=== PATIENT | female | born 1975 | race Caucasian/White ===

== ENCOUNTER 2019-07-01 04:38 | Inpatient (IN) | payer OTHER ==
[~2019-07-01] VITALS: Ht 154.9 cm; Wt 50.8 kg
[2019-07-01] MEDS ORDERED: SODIUM CHLORIDE 0.9% 1,000 ML IV ONE (05:08)
[2019-07-01] MEDS ORDERED: ONDANSETRON HCL 4MG/2ML INJ IV STA (05:08)
[2019-07-01] MEDS ORDERED: LORAZEPAM 2MG/ML CPJ IV ONE (05:15)
[2019-07-01] MEDS ORDERED: LEVETIRACETAM 500MG PREMIX 100 ML IV ONE (05:15)
[2019-07-01 05:41] LABS: BG BASE EXCESS -1.2 mmol/L (-2.0-2.0); BG CARBOXYHEMOGLOBIN 1.8 % (0.5-1.5); BG DEOXYHEMOGLOBIN 0.6 % (0.0-5.0); BG FRACTION INSPIRED OXYGEN 100; BG HCO3 ACT 25.4 mmol/L (22.0-26.0); BG METHEMOGLOBIN 0.1 % (0.0-1.5); BG OXYGEN SATURATION 99.4 % (92.0-98.5); BG OXYHEMOGLOBIN 97.5 % (94.0-97.0); BG PCO2 51.1 mmHg (35.0-45.0); BG PH 7.315 (7.350-7.450); BG SAMPLE SITE RIGHT RADIAL; BG TOTAL HEMOGLOBIN 11.5 g/dL (12.0-18.0); BG VENT MODE MASK - NRB
[2019-07-01 05:59] LABS: BASOPHILS % 0.7 % (0.0-2.0); EOSINOPHILS % 2.1 % (0.0-5.0); HEMATOCRIT. 41.5 % (36.0-48.0); LYMPHOCYTES % 39.3 % (20.0-50.0); MEAN CORPUSCULAR HEMOGLOBIN 27.6 pg (28.0-32.0); MEAN CORPUSCULAR VOLUME 87.9 fL (81.0-99.0); MEAN PLATELET VOLUME 8.1 fl (7.4-10.4); MONOCYTES % 6.4 % (2.0-8.0); NEUTROPHILS % 51.5 % (40.0-76.0); PLATELET 508 x1000/uL (130-400); RED BLOOD CELL COUNT 4.73 mill/uL (4.2-5.4); RED CELL DISTRIBUTION WIDTH 16.6 % (11.6-14.6)
[2019-07-01 06:08] LABS: CHLORIDE 103 mEq/L (98-107)
[2019-07-01 06:13] LABS: ETHANOL BLOOD < 10 mg/dL
[2019-07-01 07:14] LABS: CLARITY URINE CLEAR (CLEAR); COLOR URINE YELLOW (YELLOW); KETONES URINE NEGATIVE (NEGATIVE); LEUKOCYTE ESTERASE URINE NEGATIVE (NEGATIVE); NITRITE URINE NEGATIVE (NEGATIVE); OCCULT BLOOD URINE NEGATIVE (NEGATIVE); PROTEIN URINE NEGATIVE (NEGATIVE); SPECIFIC GRAVITY URINE 1.022 (1.005-1.030); UROBILINOGEN URINE 0.2 E.U./dL (0.2-1.0)
[2019-07-01 08:12] LABS: *BARBITURATES SCREEN URINE NEGATIVE (NEGATIVE); *BENZODIAZEPINES SCREEN URINE NEGATIVE (NEGATIVE); *COCAINE SCREEN URINE NEGATIVE (NEGATIVE); CANNABINOID URINE SCREEN NEGATIVE (NEGATIVE); METHADONE URINE SCREEN NEGATIVE (NEGATIVE); OPIATES URINE SCREEN NEGATIVE (NEGATIVE); PHENCYCLIDINE URINE SCREEN NEGATIVE (NEGATIVE)
[2019-07-01 08:27] LABS: *AMPHETAMINES SCREEN URINE PRESUMTIVE POSITIVE (NEGATIVE)
[2019-07-01] MEDS ORDERED: SODIUM CHLORIDE 0.9% 1,000 ML IV SCH (09:36)
[2019-07-01] MEDS ORDERED: ONDANSETRON HCL 4MG/2ML INJ IV PRN (09:45)
[2019-07-01] MEDS ORDERED: ACETAMINOPHEN 325MG TABLET PO PRN (09:45)
[2019-07-01] MEDS ORDERED: CLONIDINE 0.1MG TABLET PO PRN (09:45)
[2019-07-01] MEDS ORDERED: IPRATROPIUM/ALBUTEROL 0.5-3(2.5)MG/3ML NEB HHN PRN (09:45)
[2019-07-01] MEDS ORDERED: LORAZEPAM 2MG/ML CPJ IV PRN (09:45)
[2019-07-01] MEDS ORDERED: DIPHENHYDRAMINE 50MG/ML VIAL IV PRN (09:45)
[2019-07-01 10:27] LABS: PHOSPHORUS 4.8 mg/dL (2.5-4.9)
[2019-07-01] MEDS ORDERED: ENOXAPARIN 40MG/0.4ML SYR SUBCUT SCH (11:00)
[2019-07-01 11:12] VITALS: BP 102/71
[2019-07-01 12:48] VITALS: BP 104/71
[2019-07-01] MEDS ORDERED: DEXTROSE 50% WATER 50ML SYRINGE IV PRN (13:30)
[2019-07-01 13:50] VITALS: BP 119/73
[2019-07-01 14:50] VITALS: BP 116/78
[2019-07-01] MEDS ORDERED: BLOOD SUGAR DIAGNOSTIC STRIP TEST SCH (17:30)
[2019-07-01] MEDS ORDERED: INSULIN LISPRO 100 UNITS/ML SUBCUT SCH (18:00)
[2019-07-01] MEDS ORDERED: LEVETIRACETAM 500MG PREMIX 100 ML IV SCH (21:00)
== END 2019-07-01 17:16 | disposition left against medical advice (07) | DRG 53 ==
LOC: ER 05:10 → 5EST 05:53 → ENRESERV 08:43 → CANRESERV 08:43 → ENRESERV 09:43
PROVIDERS: ADMIT Internal Medicine; ATTEND Internal Medicine
DX: G40.901 Epilepsy, unspecified, not intractable, with status epilepticus (principal); E87.6 Hypokalemia; R73.9 Hyperglycemia, unspecified; Z53.29 Procedure and treatment not carried out because of patient's decision for other reasons; Z68.21 Body mass index [BMI] 21.0-21.9, adult
CPT/HCPCS: 36415; 36600; 71045; 80053; 80305; 80307; 80320; 80329; 81003; 82375; 82805; 82962; 83605; 83735; 84100; 85025; 93005; 96365; 99291; J1953; J2060; J2405; J7030; G0480

== ENCOUNTER 2019-07-16 05:32 | Inpatient (IN) | payer OTHER ==
[~2019-07-16] VITALS: Ht 160 cm; Wt 54.4 kg
[2019-07-16] MEDS ORDERED: LORAZEPAM 2MG/ML CPJ IV ONE (06:15)
[2019-07-16] MEDS ORDERED: LEVETIRACETAM 1000MG/100ML 100 ML IV ONE (06:30)
[2019-07-16] MEDS ORDERED: SODIUM CHLORIDE 0.9% 1,000 ML IV ONE (06:30)
[2019-07-16 06:43] LABS: CHLORIDE 106 mEq/L (98-107)
[2019-07-16 06:47] LABS: BASOPHILS % 0.8 % (0.0-2.0); EOSINOPHILS % 1.6 % (0.0-5.0); ETHANOL BLOOD < 10 mg/dL; HEMATOCRIT. 39.2 % (36.0-48.0); HEMOGLOBIN. 12.7 g/dL (12.0-16.0); LYMPHOCYTES % 22.7 % (20.0-50.0); MEAN CORPUSCULAR HEMOGLOBIN 27.2 pg (28.0-32.0); MEAN CORPUSCULAR VOLUME 84.2 fL (81.0-99.0); MEAN PLATELET VOLUME 7.9 fl (7.4-10.4); MONOCYTES % 8.3 % (2.0-8.0); NEUTROPHILS % 66.6 % (40.0-76.0); PLATELET 485 x1000/uL (130-400); RED BLOOD CELL COUNT 4.65 mill/uL (4.2-5.4)
[2019-07-16 07:07] LABS: HCG SCREEN NEGATIVE
[2019-07-16 07:41] LABS: CLARITY URINE CLEAR (CLEAR); COLOR URINE YELLOW (YELLOW); KETONES URINE NEGATIVE (NEGATIVE); LEUKOCYTE ESTERASE URINE NEGATIVE (NEGATIVE); NITRITE URINE NEGATIVE (NEGATIVE); OCCULT BLOOD URINE NEGATIVE (NEGATIVE); PH URINE 6.5 (4.5-8.0); PROTEIN URINE NEGATIVE (NEGATIVE); SPECIFIC GRAVITY URINE 1.032 (1.005-1.030); UROBILINOGEN URINE 0.2 E.U./dL (0.2-1.0)
[2019-07-16 09:20] LABS: *BARBITURATES SCREEN URINE NEGATIVE (NEGATIVE); *BENZODIAZEPINES SCREEN URINE NEGATIVE (NEGATIVE); *COCAINE SCREEN URINE NEGATIVE (NEGATIVE)
[2019-07-16 09:21] LABS: *AMPHETAMINES SCREEN URINE PRESUMTIVE POSITIVE (NEGATIVE); CANNABINOID URINE SCREEN NEGATIVE (NEGATIVE); METHADONE URINE SCREEN NEGATIVE (NEGATIVE); OPIATES URINE SCREEN NEGATIVE (NEGATIVE); PHENCYCLIDINE URINE SCREEN NEGATIVE (NEGATIVE)
[2019-07-16] MEDS ORDERED: DIPHENHYDRAMINE 50MG/ML VIAL IV PRN (09:30)
[2019-07-16] MEDS ORDERED: LORAZEPAM 2MG/ML CPJ IV PRN (09:30)
[2019-07-16] MEDS ORDERED: CLONIDINE 0.1MG TABLET PO PRN (09:30)
[2019-07-16] MEDS ORDERED: NA PHOS,M-B/NA PHOS,DI-BA ENEMA 118ML PR PRN (09:30)
[2019-07-16] MEDS ORDERED: HYDROCODONE/ACETAMINOPHEN 5/325MG TABLET PO PRN (09:30)
[2019-07-16] MEDS ORDERED: MAGNESIUM/ALUMINUM HYDROXIDE/SIMETHICONE 30ML UDC PO PRN (09:30)
[2019-07-16] MEDS ORDERED: IPRATROPIUM/ALBUTEROL 0.5-3(2.5)MG/3ML NEB NEB PRN (09:30)
[2019-07-16] MEDS ORDERED: DOCUSATE SODIUM 100MG CAPSULE PO PRN (09:30)
[2019-07-16] MEDS ORDERED: GUAIFENESIN 200MG/10ML SUGAR FREE UDC PO PRN (09:30)
[2019-07-16] MEDS ORDERED: ONDANSETRON HCL 4MG/2ML INJ IV PRN (09:30)
[2019-07-16] MEDS ORDERED: ENOXAPARIN 40MG/0.4ML SYR SUBCUT NR (10:30)
[2019-07-16] MEDS: SODIUM CHLORIDE 0.45% 1,000 ML IV SCH (10:31)
[2019-07-16] MEDS ORDERED: ASPIRIN 81MG EC TABLET PO SCH (11:00)
[2019-07-16 13:25] VITALS: BP 116/86
[2019-07-16 13:30] VITALS: BP 116/86
[2019-07-16] MEDS: MORPHINE SULFATE 2 MG/ML CPJ (NOT FOR IM USE) IV PRN ×2 (14:58→19:42)
[2019-07-16 16:00] VITALS: BP 123/84
[2019-07-16 17:23] LABS: CHLORIDE 104 mEq/L (98-107)
[2019-07-16] MEDS: ACETAMINOPHEN 325MG TABLET PO PRN (19:49)
[2019-07-16 20:00] VITALS: BP 118/79
[2019-07-17] VITALS: BP 117/73
[2019-07-17] MEDS: MORPHINE SULFATE 2 MG/ML CPJ (NOT FOR IM USE) IV PRN (02:00)
[2019-07-17] MEDS: ACETAMINOPHEN 325MG TABLET PO PRN (02:20)
[2019-07-17] MEDS: SODIUM CHLORIDE 0.45% 1,000 ML IV SCH (02:25)
[2019-07-17 04:00] VITALS: BP 103/76
[2019-07-17 06:32] LABS: BASOPHILS % 1.2 % (0.0-2.0); EOSINOPHILS % 1.7 % (0.0-5.0); HEMOGLOBIN. 12.7 g/dL (12.0-16.0); LYMPHOCYTES % 24.8 % (20.0-50.0); MEAN CORPUSCULAR HEMOGLOBIN 27.5 pg (28.0-32.0); MEAN CORPUSCULAR VOLUME 84.2 fL (81.0-99.0); MEAN PLATELET VOLUME 7.6 fl (7.4-10.4); MONOCYTES % 7.9 % (2.0-8.0); NEUTROPHILS % 64.4 % (40.0-76.0); PLATELET 483 x1000/uL (130-400); RED BLOOD CELL COUNT 4.63 mill/uL (4.2-5.4); RED CELL DISTRIBUTION WIDTH 16.9 % (11.6-14.6)
[2019-07-17] MEDS ORDERED: ENOXAPARIN 40MG/0.4ML SYR SUBCUT SCH (09:00)
[2019-07-17 09:15] LABS: CHLORIDE 105 mEq/L (98-107)
[2019-07-17 09:26] LABS: LDL CHOLESTEROL 97 mg/dL (5-100)
[2019-07-17 09:27] LABS: HDL CHOLESTEROL 101 mg/dL (40-59)
[2019-07-17] MEDS ORDERED: AMITRIPTYLINE 25MG TABLET PO SCH (21:00)
[2019-07-21 10:10] LABS: HIV SCREEN 4G Non Reactive (Non Reactive)
== END 2019-07-17 06:50 | disposition left against medical advice (07) | DRG 53 ==
LOC: ER 06:08 → 7WST 07:50 → EDBEDREQTM 07:52 → EDBEDREQ 07:52 → ENRESERV 11:57
PROVIDERS: ADMIT Internal Medicine; ATTEND Internal Medicine
DX: G40.89 Other seizures (principal); E86.0 Dehydration; F15.10 Other stimulant abuse, uncomplicated; F17.210 Nicotine dependence, cigarettes, uncomplicated; Z76.5 Malingerer [conscious simulation]
CPT/HCPCS: 36415; 80048; 80053; 80061; 80305; 80320; 81003; 84439; 84443; 84484; 84703; 85025; 87389; 99291; J1650; J1953; J2060; J2270; J2405; J7030; G0480

== ENCOUNTER 2019-09-27 17:06 | Emergency (ER) | payer MEDICAID ==
[~2019-09-27] VITALS: Ht 167.6 cm; Wt 55.0 kg
[2019-09-27] MEDS ORDERED: LORAZEPAM 2MG/ML CPJ IV STA (17:18)
[2019-09-27] MEDS ORDERED: SODIUM CHLORIDE 0.9% 1,000 ML IV ONE (17:18)
[2019-09-27] MEDS ORDERED: PHENYTOIN SODIUM 100MG/2ML VIAL IV ONE (17:30)
[2019-09-27 18:00] LABS: BASOPHILS % 0.5 % (0.0-2.0); HEMATOCRIT. 42.5 % (36.0-48.0); LYMPHOCYTES % 15.4 % (20.0-50.0); MEAN CORPUSCULAR HEMOGLOBIN 26.3 pg (28.0-32.0); MEAN CORPUSCULAR VOLUME 79.9 fL (81.0-99.0); MEAN PLATELET VOLUME 8.2 fl (7.4-10.4); MONOCYTES % 6.3 % (2.0-8.0); NEUTROPHILS % 75.8 % (40.0-76.0); PLATELET 461 x1000/uL (130-400); RED BLOOD CELL COUNT 5.32 mill/uL (4.2-5.4); RED CELL DISTRIBUTION WIDTH 16.7 % (11.6-14.6)
[2019-09-27] MEDS ORDERED: PHENYTOIN SODIUM 1,000 MG in SODIUM CHLORIDE 0.9% 100 ML IV ONE (18:00)
[2019-09-27 18:04] LABS: CHLORIDE 100 mEq/L (98-107); HCG SCREEN NEGATIVE
[2019-09-27 18:08] LABS: ETHANOL BLOOD < 10 mg/dL
[2019-09-27] MEDS ORDERED: LORAZEPAM 2MG/ML CPJ IV NR (18:30)
[2019-09-28 04:08] VITALS: BP 118/75
[2019-09-28] MEDS ORDERED: ACETAMINOPHEN 325MG TABLET PO ONE (04:30)
== END 2019-09-28 05:30 | disposition home or self-care (01) ==
LOC: ER 17:12
DX: S00.81XA Abrasion of other part of head, initial encounter (principal); S00.31XA Abrasion of nose, initial encounter; F15.129 Other stimulant abuse with intoxication, unspecified; G40.909 Epilepsy, unspecified, not intractable, without status epilepticus; Z59.0 Homelessness; W01.0XXA Fall on same level from slipping, tripping and stumbling without subsequent striking against object, initial encounter; Y93.89 Activity, other specified; Y92.488 Other paved roadways as the place of occurrence of the external cause
CPT/HCPCS: 36415; 70450; 71045; 80053; 80185; 80320; 82962; 84703; 85025; 96361; 96365; 96366; 96375; 99285; J1165; J2060; J7030; J7050; G0480

== ENCOUNTER 2019-09-30 08:58 | Emergency (ER) | payer MEDICAID, OTHER ==
[~2019-09-30] VITALS: Ht 167.6 cm; Wt 58.0 kg
[2019-09-30] MEDS ORDERED: PHENYTOIN SODIUM EXTENDED 100MG CAPSULE PO ONE (10:45)
[2019-09-30] MEDS ORDERED: LORAZEPAM 2MG/ML CPJ ONE (12:43)
[2019-09-30] MEDS ORDERED: LORAZEPAM 2MG/ML CPJ IV ONE (12:45)
[2019-09-30 12:58] LABS: BASOPHILS % 0.3 % (0.0-2.0); EOSINOPHILS % 0.6 % (0.0-5.0); HEMATOCRIT. 42.2 % (36.0-48.0); LYMPHOCYTES % 22.5 % (20.0-50.0); MEAN CORPUSCULAR HEMOGLOBIN 25.5 pg (28.0-32.0); MEAN CORPUSCULAR VOLUME 82.9 fL (81.0-99.0); MEAN PLATELET VOLUME 7.5 fl (7.4-10.4); MONOCYTES % 6.8 % (2.0-8.0); NEUTROPHILS % 69.8 % (40.0-76.0); PLATELET 476 x1000/uL (130-400); RED BLOOD CELL COUNT 5.09 mill/uL (4.2-5.4); RED CELL DISTRIBUTION WIDTH 17.4 % (11.6-14.6)
[2019-09-30 13:06] LABS: CHLORIDE 106 mEq/L (98-107); INR 0.9; PROTHROMBIN TIME 10.1 sec (9.6-11.0)
[2019-09-30 13:10] LABS: ETHANOL BLOOD < 10 mg/dL
[2019-09-30 13:57] VITALS: BP 131/90
[2019-09-30] MEDS ORDERED: ACETAMINOPHEN 325MG TABLET PO ONE (15:00)
== END 2019-09-30 15:32 | disposition left against medical advice (07) ==
LOC: ER 08:58 → CANBEDREQ 17:21
DX: G40.909 Epilepsy, unspecified, not intractable, without status epilepticus (principal)
CPT/HCPCS: 36415; 80053; 80185; 80320; 82962; 85025; 85610; 96374; 99283; J2060; G0480

== ENCOUNTER 2019-10-04 04:23 | Emergency (ER) | payer OTHER ==
[~2019-10-04] VITALS: Ht 165.1 cm; Wt 64.0 kg
[2019-10-04] MEDS ORDERED: LORAZEPAM 2MG/ML CPJ ONE (04:37)
[2019-10-04] MEDS ORDERED: LORAZEPAM 2MG/ML CPJ IV ONE (04:45)
[2019-10-04] MEDS ORDERED: TETANUS, DIPHTHERIA, PERTUSSIS VAC/PF 0.5ML (>7YR OLD) IM ONE (04:45)
[2019-10-04 05:06] LABS: CHLORIDE 103 mEq/L (98-107)
[2019-10-04 05:11] LABS: ETHANOL BLOOD < 10 mg/dL
[2019-10-04 05:13] LABS: BASOPHILS % 0.4 % (0.0-2.0); EOSINOPHILS % 0.7 % (0.0-5.0); HEMATOCRIT. 41.2 % (36.0-48.0); LYMPHOCYTES % 7.3 % (20.0-50.0); MEAN CORPUSCULAR HEMOGLOBIN 25.2 pg (28.0-32.0); MEAN CORPUSCULAR VOLUME 79.7 fL (81.0-99.0); MEAN PLATELET VOLUME 7.5 fl (7.4-10.4); MONOCYTES % 9.3 % (2.0-8.0); NEUTROPHILS % 82.3 % (40.0-76.0); PLATELET 493 x1000/uL (130-400); RED BLOOD CELL COUNT 5.17 mill/uL (4.2-5.4); RED CELL DISTRIBUTION WIDTH 17.2 % (11.6-14.6)
[2019-10-04 05:56] LABS: CLARITY URINE CLEAR (CLEAR); COLOR URINE YELLOW (YELLOW); KETONES URINE NEGATIVE (NEGATIVE); LEUKOCYTE ESTERASE URINE TRACE (NEGATIVE); NITRITE URINE NEGATIVE (NEGATIVE); OCCULT BLOOD URINE 2+ (NEGATIVE); PROTEIN URINE NEGATIVE (NEGATIVE); SPECIFIC GRAVITY URINE 1.019 (1.005-1.030); UROBILINOGEN URINE 0.2 E.U./dL (0.2-1.0)
[2019-10-04 06:00] LABS: *BARBITURATES SCREEN URINE NEGATIVE (NEGATIVE)
[2019-10-04] MEDS ORDERED: PHENYTOIN SODIUM 100MG/2ML VIAL IV ONE (06:00)
[2019-10-04 06:01] LABS: *BENZODIAZEPINES SCREEN URINE NEGATIVE (NEGATIVE); *COCAINE SCREEN URINE NEGATIVE (NEGATIVE); CANNABINOID URINE SCREEN NEGATIVE (NEGATIVE); METHADONE URINE SCREEN NEGATIVE (NEGATIVE); OPIATES URINE SCREEN NEGATIVE (NEGATIVE); PHENCYCLIDINE URINE SCREEN NEGATIVE (NEGATIVE)
[2019-10-04 06:02] LABS: *AMPHETAMINES SCREEN URINE PRESUMTIVE POSITIVE (NEGATIVE)
[2019-10-04] MEDS: PHENYTOIN SODIUM 500 MG in SODIUM CHLORIDE 0.9% 100 ML IV SCH ×2 (06:50→08:03)
[2019-10-04 07:30] VITALS: BP 119/70
== END 2019-10-04 07:55 | disposition home or self-care (01) ==
LOC: ER 04:23
DX: S80.211A Abrasion, right knee, initial encounter (principal); R56.9 Unspecified convulsions; W18.39XA Other fall on same level, initial encounter; Y93.89 Activity, other specified; Y92.89 Other specified places as the place of occurrence of the external cause; Y99.8 Other external cause status
CPT/HCPCS: 36415; 70450; 70486; 80053; 80185; 80305; 80320; 81003; 81025; 82962; 85025; 90471; 90715; 96365; 96375; 99285; J1165; J2060; J7050; G0480

== ENCOUNTER 2019-10-31 11:22 | Emergency (ER) | payer OTHER ==
[~2019-10-31] VITALS: Ht 165.1 cm; Wt 64.0 kg
[2019-10-31] MEDS ORDERED: PHEN50TA PO (11:25)
[2019-10-31] MEDS ORDERED: PHENYTOIN SODIUM EXTENDED 100MG CAPSULE PO ONE ×2 (12:00→13:00)
[2019-10-31 12:10] LABS: CHLORIDE 105 mEq/L (98-107)
[2019-10-31 12:11] LABS: BASOPHILS % 0.6 % (0.0-2.0); EOSINOPHILS % 2.3 % (0.0-5.0); HEMATOCRIT. 37.8 % (36.0-48.0); HEMOGLOBIN. 12.2 g/dL (12.0-16.0); LYMPHOCYTES % 18.9 % (20.0-50.0); MEAN CORPUSCULAR HEMOGLOBIN 25.5 pg (28.0-32.0); MEAN CORPUSCULAR VOLUME 78.6 fL (81.0-99.0); MEAN PLATELET VOLUME 7.8 fl (7.4-10.4); MONOCYTES % 6.7 % (2.0-8.0); NEUTROPHILS % 71.5 % (40.0-76.0); PLATELET 397 x1000/uL (130-400); RED BLOOD CELL COUNT 4.81 mill/uL (4.2-5.4); RED CELL DISTRIBUTION WIDTH 17.6 % (11.6-14.6)
[2019-10-31 12:12] LABS: COLOR URINE YELLOW (YELLOW); KETONES URINE NEGATIVE (NEGATIVE); LEUKOCYTE ESTERASE URINE 1+ (NEGATIVE); NITRITE URINE NEGATIVE (NEGATIVE); OCCULT BLOOD URINE TRACE (NEGATIVE); PROTEIN URINE NEGATIVE (NEGATIVE); SPECIFIC GRAVITY URINE 1.023 (1.005-1.030); UROBILINOGEN URINE 0.2 E.U./dL (0.2-1.0)
[2019-10-31 12:13] LABS: CLARITY URINE HAZY (CLEAR)
[2019-10-31 12:14] LABS: ETHANOL BLOOD < 10 mg/dL
[2019-10-31 12:38] LABS: *BARBITURATES SCREEN URINE NEGATIVE (NEGATIVE); CANNABINOID URINE SCREEN NEGATIVE (NEGATIVE); OPIATES URINE SCREEN NEGATIVE (NEGATIVE); PHENCYCLIDINE URINE SCREEN NEGATIVE (NEGATIVE)
[2019-10-31 12:39] LABS: *COCAINE SCREEN URINE NEGATIVE (NEGATIVE); METHADONE URINE SCREEN NEGATIVE (NEGATIVE)
[2019-10-31 12:42] LABS: *AMPHETAMINES SCREEN URINE PRESUMTIVE POSITIVE (NEGATIVE); *BENZODIAZEPINES SCREEN URINE PRESUMTIVE POSITIVE (NEGATIVE)
[2019-10-31] MEDS ORDERED: CEFTRIAXONE 1 G PREMIX 50 ML IV ONE (13:00)
[2019-10-31] MEDS ORDERED: SODIUM CHLORIDE 0.9% 1,000 ML IV ONE (13:00)
[2019-10-31] MEDS ORDERED: LORAZEPAM 2MG/ML CPJ IV ONE ×2 (14:15→15:00)
[2019-10-31 15:10] VITALS: BP 126/75
== END 2019-10-31 15:45 | disposition home or self-care (01) ==
LOC: ER 11:22
DX: T43.621A Poisoning by amphetamines, accidental (unintentional), initial encounter (principal); G40.901 Epilepsy, unspecified, not intractable, with status epilepticus; N30.00 Acute cystitis without hematuria; F17.210 Nicotine dependence, cigarettes, uncomplicated; Y92.018 Other place in single-family (private) house as the place of occurrence of the external cause
CPT/HCPCS: 36415; 80053; 80185; 80305; 80320; 81003; 81025; 85025; 96365; 96375; 99284; J0696; J2060; J7030; G0480

== ENCOUNTER 2020-01-11 09:54 | Emergency (ER) | payer MEDICAID, OTHER ==
[~2020-01-11] VITALS: Ht 162.6 cm; Wt 60.0 kg
[~2020-01-11 09:54] MED LIST: PHEN50TA PO
[2020-01-11 10:10] VITALS: BP 113/72
[2020-01-11] MEDS ORDERED: PHENYTOIN SODIUM 1,000 MG in SODIUM CHLORIDE 0.9% 100 ML IV ONE (10:15)
[2020-01-11] MEDS ORDERED: PHENYTOIN SODIUM EXTENDED 100MG CAPSULE PO NR (11:00)
== END 2020-01-11 12:51 | disposition home or self-care (01) ==
LOC: ER 09:54
DX: G40.909 Epilepsy, unspecified, not intractable, without status epilepticus (principal); Z91.14 Patient's other noncompliance with medication regimen; F15.10 Other stimulant abuse, uncomplicated
CPT/HCPCS: 99283; J1165; J7050

== ENCOUNTER 2020-01-11 13:10 | Emergency (ER) | payer MEDICAID ==
[~2020-01-11] VITALS: Ht 157.5 cm; Wt 60.0 kg
[2020-01-11] MEDS ORDERED: PHENYTOIN SODIUM 100MG/2ML VIAL IV ONE (14:00)
[2020-01-11] MEDS ORDERED: LORAZEPAM 2MG/ML CPJ ONE (14:16)
[2020-01-11] MEDS ORDERED: PHENYTOIN SODIUM 700 MG in SODIUM CHLORIDE 0.9% 100 ML IV SCH (14:30)
[2020-01-11 14:43] LABS: CHLORIDE 106 mEq/L (98-107)
[2020-01-11 14:46] LABS: ETHANOL BLOOD < 10 mg/dL
[2020-01-11 14:56] LABS: BASOPHILS % 0.4 % (0.0-2.0); EOSINOPHILS % 0.3 % (0.0-5.0); HEMATOCRIT. 37.6 % (36.0-48.0); HEMOGLOBIN. 11.9 g/dL (12.0-16.0); LYMPHOCYTES % 10.8 % (20.0-50.0); MEAN CORPUSCULAR HEMOGLOBIN 25.6 pg (28.0-32.0); MEAN CORPUSCULAR VOLUME 81.2 fL (81.0-99.0); MEAN PLATELET VOLUME 7.9 fl (7.4-10.4); MONOCYTES % 6.2 % (2.0-8.0); NEUTROPHILS % 82.3 % (40.0-76.0); PLATELET 419 x1000/uL (130-400); RED BLOOD CELL COUNT 4.63 mill/uL (4.2-5.4); RED CELL DISTRIBUTION WIDTH 17.8 % (11.6-14.6)
[2020-01-11 15:44] LABS: *BARBITURATES SCREEN URINE NEGATIVE (NEGATIVE)
[2020-01-11 15:45] LABS: *COCAINE SCREEN URINE NEGATIVE (NEGATIVE); METHADONE URINE SCREEN NEGATIVE (NEGATIVE); OPIATES URINE SCREEN NEGATIVE (NEGATIVE); PHENCYCLIDINE URINE SCREEN NEGATIVE (NEGATIVE)
[2020-01-11 15:46] LABS: CANNABINOID URINE SCREEN NEGATIVE (NEGATIVE)
[2020-01-11 15:51] LABS: *AMPHETAMINES SCREEN URINE PRESUMTIVE POSITIVE (NEGATIVE); *BENZODIAZEPINES SCREEN URINE PRESUMTIVE POSITIVE (NEGATIVE)
[2020-01-11 20:18] VITALS: BP 116/71
== END 2020-01-11 20:18 | disposition home or self-care (01) ==
LOC: ER 13:10
DX: G40.419 Other generalized epilepsy and epileptic syndromes, intractable, without status epilepticus (principal); E86.0 Dehydration; Z91.14 Patient's other noncompliance with medication regimen; F15.10 Other stimulant abuse, uncomplicated; F16.10 Hallucinogen abuse, uncomplicated; S00.81XA Abrasion of other part of head, initial encounter; X58.XXXA Exposure to other specified factors, initial encounter; Y93.89 Activity, other specified; Y92.89 Other specified places as the place of occurrence of the external cause
CPT/HCPCS: 36415; 80048; 80305; 80320; 82962; 85025; 93005; 96365; 96366; 99284; J1165; J2060; J7050; G0480

== ENCOUNTER 2020-01-20 14:14 | Emergency (ER) | payer MEDICAID, OTHER ==
[~2020-01-20] VITALS: Ht 165.1 cm; Wt 55.0 kg
[2020-01-20] MEDS ORDERED: SODIUM CHLORIDE 0.9% 1,000 ML IV ONE (14:28)
[2020-01-20] MEDS ORDERED: PHENYTOIN SODIUM EXTENDED 100MG CAPSULE PO ONE (14:30)
[2020-01-20 14:51] LABS: BASOPHILS % 1.2 % (0.0-2.0); EOSINOPHILS % 2.1 % (0.0-5.0); HEMATOCRIT. 42.4 % (36.0-48.0); HEMOGLOBIN. 13.7 g/dL (12.0-16.0); LYMPHOCYTES % 23.6 % (20.0-50.0); MEAN CORPUSCULAR HEMOGLOBIN 25.8 pg (28.0-32.0); MEAN CORPUSCULAR VOLUME 79.7 fL (81.0-99.0); MEAN PLATELET VOLUME 7.6 fl (7.4-10.4); MONOCYTES % 8.9 % (2.0-8.0); NEUTROPHILS % 64.2 % (40.0-76.0); PLATELET 506 x1000/uL (130-400); RED BLOOD CELL COUNT 5.32 mill/uL (4.2-5.4); RED CELL DISTRIBUTION WIDTH 17.9 % (11.6-14.6)
[2020-01-20 14:57] LABS: CHLORIDE 101 mEq/L (98-107)
[2020-01-20] MEDS ORDERED: PHENYTOIN SODIUM 1,000 MG in SODIUM CHLORIDE 0.9% 100 ML IV ONE (15:00)
[2020-01-20 15:04] LABS: ETHANOL BLOOD < 10 mg/dL
[2020-01-20 15:18] LABS: HCG SCREEN NEGATIVE
[2020-01-20] MEDS ORDERED: LORAZEPAM 2MG/ML CPJ IV ONE (16:00)
[2020-01-20 22:01] VITALS: BP 136/75
== END 2020-01-20 22:41 | disposition home or self-care (01) ==
LOC: ER 14:14
DX: G40.909 Epilepsy, unspecified, not intractable, without status epilepticus (principal); F15.129 Other stimulant abuse with intoxication, unspecified; Z91.14 Patient's other noncompliance with medication regimen
CPT/HCPCS: 36415; 80053; 80185; 80320; 81025; 84703; 85025; 93005; 96361; 96365; 96375; 99285; J1165; J2060; J7030; J7050; G0480

== ENCOUNTER 2020-04-12 05:31 | Emergency (ER) | payer OTHER ==
[~2020-04-12] VITALS: Ht 154.9 cm; Wt 50.4 kg
[~2020-04-12 05:31] MED LIST changes: +PHEN100C12 PO; -PHEN50TA PO
[2020-04-12] MEDS ORDERED: PHENYTOIN SODIUM EXTENDED 100MG CAPSULE PO ONE (06:45)
[2020-04-12] MEDS ORDERED: LORAZEPAM 2MG/ML CPJ IV ONE (06:45)
[2020-04-12 07:48] LABS: *BARBITURATES SCREEN URINE NEGATIVE (NEGATIVE); *BENZODIAZEPINES SCREEN URINE NEGATIVE (NEGATIVE); *COCAINE SCREEN URINE NEGATIVE (NEGATIVE); METHADONE URINE SCREEN NEGATIVE (NEGATIVE); OPIATES URINE SCREEN NEGATIVE (NEGATIVE)
[2020-04-12 07:49] LABS: CANNABINOID URINE SCREEN NEGATIVE (NEGATIVE); PHENCYCLIDINE URINE SCREEN NEGATIVE (NEGATIVE)
[2020-04-12 07:55] LABS: *AMPHETAMINES SCREEN URINE PRESUMTIVE POSITIVE (NEGATIVE)
[2020-04-12 11:00] VITALS: BP 107/74
== END 2020-04-12 17:22 | disposition home or self-care (01) ==
LOC: ER 05:31
DX: G40.909 Epilepsy, unspecified, not intractable, without status epilepticus (principal); F15.10 Other stimulant abuse, uncomplicated; Z91.14 Patient's other noncompliance with medication regimen
CPT/HCPCS: 36415; 80305; 80320; 96374; 99283; J2060; G0480